=== PATIENT | female | born 1950 | race Caucasian/White ===

== ENCOUNTER 2018-06-15 08:00 | Day surgery (SDC) ==
[2018-06-15] MEDS: TETRACAINE 0.5% UNIT-DOSE OP PRN ×2 (08:10→09:17)
[2018-06-15] MEDS: BETADINE OPTH PREP OP PRN ×2 (08:10→09:17)
[2018-06-15] MEDS: CYCLOGYL 2% OPTH OP PRN ×3 (08:11→08:21)
[2018-06-15] MEDS ORDERED: BRIMONIDINE TARTRATE 0.2% OPTH SOL OP PRN (08:22)
[2018-06-15] MEDS ORDERED: ZOFRAN 4 MG/2 ML IVP ONE (08:22)
[2018-06-15] MEDS ORDERED: LIDOCAINE 1% 20 ML MDV ID STA (08:22)
[2018-06-15] MEDS: BSS WITH EPINEPHRINE OP ONE ×2 (09:23→09:35)
[2018-06-15] MEDS: LIDOCAINE 1%/PHENYLEPHRINE 1.5% BSS (SURGERY) INTRAOCULA ONE ×2 (09:23→09:35)
[2018-06-15] MEDS: DEX-MOXI-KETOR OPTH INJ 1/0.5/0.4 MG/ML IO ONE ×2 (09:23→09:35)
[2018-06-15] MEDS ORDERED: DIPRIVAN 20 ML VIAL IVP ONE (09:30)
[2018-06-15 12:56] VITALS: TEMP 98.4
[2018-06-17 14:38] VITALS: BP 132/78
== END 2018-06-15 10:30 | disposition home or self-care (01) ==
LOC: SURG 08:00
PROVIDERS: ATTEND Ophthalmology
DX: H25.811 Combined forms of age-related cataract, right eye (principal)

== ENCOUNTER 2018-07-13 07:18 | Day surgery (SDC) ==
[2018-07-13] MEDS: BETADINE OPTH PREP OP PRN ×2 (07:43→08:37)
[2018-07-13] MEDS: TETRACAINE 0.5% UNIT-DOSE OP PRN ×2 (07:43→08:36)
[2018-07-13] MEDS: CYCLOGYL 2% OPTH OP PRN ×3 (07:44→07:54)
[2018-07-13] MEDS ORDERED: ZOFRAN 4 MG/2 ML IVP ONE (08:10)
[2018-07-13] MEDS ORDERED: DEX-MOXI-KETOR OPTH INJ 1/0.5/0.4 MG/ML IO ONE (08:10)
[2018-07-13] MEDS ORDERED: BSS WITH EPINEPHRINE OP ONE (08:10)
[2018-07-13] MEDS ORDERED: LIDOCAINE 1%/PHENYLEPHRINE 1.5% BSS (SURGERY) INTRAOCULA ONE (08:10)
[2018-07-13] MEDS ORDERED: LIDOCAINE 1% 20 ML MDV ID STA (08:10)
[2018-07-13 08:15] VITALS: TEMP 98.2
[2018-07-13] MEDS ORDERED: DIPRIVAN 20 ML VIAL IVP ONE (10:30)
[2018-07-19 12:41] VITALS: BP 154/63
== END 2018-07-13 09:45 | disposition home or self-care (01) ==
LOC: SURG 07:18
PROVIDERS: ATTEND Ophthalmology
DX: H25.812 Combined forms of age-related cataract, left eye (principal)